=== PATIENT | female | born 1990 | race Caucasian/White ===

== ENCOUNTER 2019-11-29 12:41 | Emergency (ER) | payer BC ==
[~2019-11-29] VITALS: Ht 160 cm; Wt 60.9 kg
[2019-11-29] MEDS ORDERED: CYCLOBENZAPRINE10 M1 PO (13:18)
[2019-11-29] MEDS ORDERED: PROAIR HFA0.09 MG/AC IH (13:18)
[2019-11-29] MEDS ORDERED: TYLENOL EXTRA500 M2 PO (13:19)
[2019-11-29] MEDS ORDERED: IBU800 M2 PO (13:19)
[2019-11-29] MEDS ORDERED: OXYCODONE HYDROC5 M1 PO (13:19)
[2019-11-29 13:48] LABS: EOS # 0.2 (0.04-0.40); EOS % 1.7 % (1.0-5.0); HEMATOCRIT 38.9 % (37.0-47.0); HEMOGLOBIN 12.6 g/dL (12.5-16.0); LYMPH# 2.2 (1.50-4.00); MEAN CELL VOLUME 90 fl (78-100); MEAN CORPUSCULAR HEMOGLOBIN 29 pg (27-31); MEAN CORPUSCULAR HGB CONC 32 g/dL (33-37); MEAN PLATELET VOLUME 8.8 fl (7.4-10.4); MONO # 0.7 (0.20-0.80); NEU # 6.7 (1.40-6.50); PLATELET COUNT 417 K/mm3 (130-400); RED BLOOD COUNT 4.33 M/mm3 (4.10-5.30); RED CELL DISTRIBUTION WIDTH 12.6 % (11.5-14.5); WHITE BLOOD COUNT 9.8 K/mm3 (4.8-10.8)
[2019-11-29 14:16] LABS: D-DIMER 1.03 mg/L FEU (0.15-0.50)
[2019-11-29 14:40] VITALS: BP 146/94
== END 2019-11-29 14:40 | disposition home or self-care (01) ==
LOC: ED 12:41
PROVIDERS: Family Medicine
DX: R06.00 Dyspnea, unspecified (principal); Z79.1 Long term (current) use of non-steroidal anti-inflammatories (NSAID); Z87.09 Personal history of other diseases of the respiratory system; Z87.81 Personal history of (healed) traumatic fracture

== ENCOUNTER 2020-12-03 10:35 | Emergency (ER) | payer SELFPAY ==
[~2020-12-03 10:35] MED LIST: CYCLOBENZAPRINE10 M1 PO; IBU800 M2 PO; OXYCODONE HYDROC5 M1 PO; PROAIR HFA0.09 MG/AC IH; TYLENOL EXTRA500 M2 PO; ZANAFLEX CAPSULE2 MG PO
[2020-12-03 11:28] LABS: BASO # 0.02 (0.02-0.10); EOS # 0.09 (0.04-0.40); EOS % 0.8 % (1.0-5.0); HEMOGLOBIN 10.4 g/dL (12.5-16.0); LYMPH# 1.37 (1.50-4.00); MEAN CELL VOLUME 74 fl (78-100); MEAN CORPUSCULAR HEMOGLOBIN 23 pg (27-31); MEAN CORPUSCULAR HGB CONC 31 g/dL (33-37); MEAN PLATELET VOLUME 8.8 fl (7.4-10.4); NEU # 9.07 (1.40-6.50); PLATELET COUNT 440 K/mm3 (130-400); RED BLOOD COUNT 4.58 M/mm3 (4.10-5.30); RED CELL DISTRIBUTION WIDTH 14.8 % (11.5-14.5); WHITE BLOOD COUNT 11.2 K/mm3 (4.8-10.8)
[2020-12-03 11:37] LABS: ALBUMIN 4.1 g/dL (3.5-5.0); POTASSIUM 4.1 mmol/L (3.5-5.1)
[2020-12-03 11:38] LABS: CALCIUM 8.9 mg/dL (8.3-10.5)
[2020-12-03 11:39] LABS: TOTAL PROTEIN 7.1 g/dL (6.4-8.3)
[2020-12-03 11:41] LABS: TOTAL BILIRUBIN 0.4 mg/dL (0.2-1.2)
[2020-12-03 14:15] VITALS: BP 126/81
== END 2020-12-03 14:14 | disposition short-term general hospital (02) ==
LOC: ED 10:35
PROVIDERS: Nurse Practitioner
DX: S22.41XA Multiple fractures of ribs, right side, initial encounter for closed fracture (principal); S27.2XXA Traumatic hemopneumothorax, initial encounter; V80.010A Animal-rider injured by fall from or being thrown from horse in noncollision accident, initial encounter; Y93.52 Activity, horseback riding
CPT/HCPCS: J2405; J3010; L0172; Q9967

== ENCOUNTER → 2023-10-12 | Outpatient (CLI) | payer OTHER ==
[~2023-10-12] MED LIST changes: +NORCO 325 MG-51 TA1 PO; +ZOFRAN ODT4 MG PO
[2023-10-12 11:34] LABS: BASO # 0.04 K/mm3 (0.02-0.10); EOS # 0.17 K/mm3 (0.04-0.40); EOS % 3.2 % (1.0-5.0); HEMOGLOBIN 11.1 g/dL (12.5-16.0); LYMPH# 2.01 K/mm3 (1.50-4.00); MEAN CELL VOLUME 79 fl (78-100); MEAN CORPUSCULAR HEMOGLOBIN 24 pg (27-31); MEAN CORPUSCULAR HGB CONC 31 g/dL (33-37); MEAN PLATELET VOLUME 8.7 fl (7.4-10.4); MONO # 0.42 K/mm3 (0.20-0.80); NEU # 2.75 K/mm3 (1.40-6.50); PLATELET COUNT 371 K/mm3 (130-400); RED BLOOD COUNT 4.58 M/mm3 (4.10-5.30); RED CELL DISTRIBUTION WIDTH 15.4 % (11.5-14.5); WHITE BLOOD COUNT 5.4 K/mm3 (4.8-10.8)
[2023-10-12 11:38] LABS: ALBUMIN 4.1 g/dL (3.5-5.0)
[2023-10-12 11:40] LABS: TOTAL PROTEIN 6.5 g/dL (6.4-8.3)
[2023-10-12 11:42] LABS: TOTAL BILIRUBIN 0.4 mg/dL (0.2-1.2)
== END ==
LOC: LAB 11:12
PROVIDERS: Physician Assistant
DX: Z13.1 Encounter for screening for diabetes mellitus (principal); Z13.220 Encounter for screening for lipoid disorders; Z13.29 Encounter for screening for other suspected endocrine disorder; F90.0 Attention-deficit hyperactivity disorder, predominantly inattentive type; L65.9 Nonscarring hair loss, unspecified; K90.9 Intestinal malabsorption, unspecified; Z87.42 Personal history of other diseases of the female genital tract; Z98.890 Other specified postprocedural states